=== PATIENT | male | born 1960 | race Caucasian/White ===

== ENCOUNTER 2017-05-20 19:38 | Emergency (ER) | payer SELFPAY ==
[~2017-05-20] VITALS: Ht 177.8 cm; Wt 90.7 kg
--- NOTE | 2017-05-20 19:50 | NUR ---
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
[2017-05-20] MEDS ORDERED: LIDOCAINE 1%-EPI 1:100,000 50 ML VIAL IJ ONE (20:02)
[2017-05-20 20:37] VITALS: BP 134/91
== END 2017-05-20 20:38 | disposition home or self-care (01) ==
LOC: ER 19:46
DX: I83.891 Varicose veins of right lower extremity with other complications (principal)
CPT/HCPCS: 99282; A4606; A6402; Z7610; J3490